=== PATIENT | female | born 1980 | race Caucasian/White ===

== ENCOUNTER 2018-11-22 20:40 | Emergency (ER) | payer MEDICAID ==
[~2018-11-22] VITALS: Ht 154.9 cm; Wt 49.6 kg
[2018-11-22 21:10] LABS: BASOPHILS % 0.5 % (0.0-2.0); EOSINOPHILS % 2.5 % (0.0-5.0); HEMATOCRIT. 36.7 % (36.0-48.0); HEMOGLOBIN. 12.3 g/dL (12.0-16.0); LYMPHOCYTES % 40.1 % (20.0-50.0); MEAN CORPUSCULAR HEMOGLOBIN 30.7 pg (28.0-32.0); MEAN CORPUSCULAR VOLUME 91.4 fL (81.0-99.0); MEAN PLATELET VOLUME 9.2 fl (7.4-10.4); MONOCYTES % 5.8 % (2.0-8.0); NEUTROPHILS % 51.1 % (40.0-76.0); PLATELET 189 x1000/uL (130-400); RED BLOOD CELL COUNT 4.02 mill/uL (4.2-5.4); RED CELL DISTRIBUTION WIDTH 12.8 % (11.6-14.6)
[2018-11-22 21:14] LABS: CHLORIDE 109 mEq/L (98-107)
[2018-11-22] MEDS ORDERED: IOHEXOL-350 100 ML BOTTLE ONE (21:14)
[2018-11-22 21:17] LABS: PARTIAL THROMBOPLASTIN TIME 30.5 sec (23.4-31.0); PROTHROMBIN TIME 10.5 sec (9.6-11.0)
[2018-11-22 21:18] LABS: ETHANOL BLOOD < 10 mg/dL
[2018-11-22 21:29] LABS: HCG SCREEN NEGATIVE
[2018-11-22] MEDS ORDERED: ASPIRIN 325MG EC TABLET PO ONE (22:15)
[2018-11-22 23:51] VITALS: BP 106/73
== END 2018-11-23 00:06 | disposition short-term general hospital (02) ==
LOC: ER 20:40
DX: I63.9 Cerebral infarction, unspecified (principal)
CPT/HCPCS: 36415; 70450; 70496; 70498; 71045; 80053; 80320; 84484; 84703; 85025; 85610; 85730; 93005; 99285; Q9967; G0480

== ENCOUNTER 2018-12-21 20:09 | Emergency (ER) | payer MEDICAID ==
[~2018-12-21] VITALS: Ht 154.9 cm; Wt 49.0 kg
[2018-12-21 22:14] LABS: BASOPHILS % 0.9 % (0.0-2.0); EOSINOPHILS % 7.5 % (0.0-5.0); HEMATOCRIT. 34.8 % (36.0-48.0); HEMOGLOBIN. 11.7 g/dL (12.0-16.0); LYMPHOCYTES % 37.1 % (20.0-50.0); MEAN CORPUSCULAR HEMOGLOBIN 30.7 pg (28.0-32.0); MEAN CORPUSCULAR VOLUME 91.1 fL (81.0-99.0); MEAN PLATELET VOLUME 9.5 fl (7.4-10.4); MONOCYTES % 6.9 % (2.0-8.0); NEUTROPHILS % 47.6 % (40.0-76.0); PLATELET 170 x1000/uL (130-400); RED BLOOD CELL COUNT 3.82 mill/uL (4.2-5.4); RED CELL DISTRIBUTION WIDTH 12.9 % (11.6-14.6)
[2018-12-21 22:16] LABS: CHLORIDE 110 mEq/L (98-107)
[2018-12-21 22:22] LABS: ETHANOL BLOOD < 10 mg/dL
[2018-12-21 22:23] LABS: D-DIMER 0.49 mg/L FEU (<0.50); PARTIAL THROMBOPLASTIN TIME 30.2 sec (23.4-31.0); PROTHROMBIN TIME 10.2 sec (9.6-11.0)
[2018-12-22] VITALS: BP 101/68
[2018-12-22 00:49] LABS: CLARITY URINE CLEAR (CLEAR); COLOR URINE YELLOW (YELLOW); KETONES URINE NEGATIVE (NEGATIVE); LEUKOCYTE ESTERASE URINE NEGATIVE (NEGATIVE); NITRITE URINE NEGATIVE (NEGATIVE); OCCULT BLOOD URINE 2+ (NEGATIVE); PROTEIN URINE NEGATIVE (NEGATIVE); SPECIFIC GRAVITY URINE 1.026 (1.005-1.030)
[2018-12-22 01:06] LABS: *AMPHETAMINES SCREEN URINE NEGATIVE (NEGATIVE); *BARBITURATES SCREEN URINE NEGATIVE (NEGATIVE); *BENZODIAZEPINES SCREEN URINE NEGATIVE (NEGATIVE); *COCAINE SCREEN URINE NEGATIVE (NEGATIVE)
[2018-12-22 01:07] LABS: CANNABINOID URINE SCREEN NEGATIVE (NEGATIVE); METHADONE URINE SCREEN NEGATIVE (NEGATIVE); OPIATES URINE SCREEN NEGATIVE (NEGATIVE); PHENCYCLIDINE URINE SCREEN NEGATIVE (NEGATIVE)
== END 2018-12-22 00:26 | disposition home or self-care (01) ==
LOC: ER 21:04
DX: R07.89 Other chest pain (principal); R11.0 Nausea; I11.9 Hypertensive heart disease without heart failure; Z86.73 Personal history of transient ischemic attack (TIA), and cerebral infarction without residual deficits
CPT/HCPCS: 36415; 71045; 80305; 80320; 81003; 83880; 84484; 85379; 93005; 99284; G0480

== ENCOUNTER 2022-01-15 18:58 | Emergency (ER) | payer MEDICAID ==
[~2022-01-15] VITALS: Ht 157.5 cm; Wt 75.0 kg
[2022-01-16] MEDS ORDERED: ONDANSETRON HCL 4MG/2ML INJ IV STA
[2022-01-16] MEDS ORDERED: SODIUM CHLORIDE 0.9% 1,000 ML IV ONE
[2022-01-16] MEDS ORDERED: MORPHINE SULFATE 4 MG/ML CPJ (NOT FOR IM USE) IV STA
[2022-01-16 00:25] LABS: BASOPHILS % 0.1 % (0.0-2.0); EOSINOPHILS % 1.3 % (0.0-5.0); HEMATOCRIT. 39.9 % (36.0-48.0); HEMOGLOBIN. 13.3 g/dL (12.0-16.0); LYMPHOCYTES % 16.7 % (20.0-50.0); MEAN CORPUSCULAR HEMOGLOBIN 29.9 pg (28.0-32.0); MEAN CORPUSCULAR VOLUME 89.5 fL (81.0-99.0); MEAN PLATELET VOLUME 9.2 fl (7.4-10.4); MONOCYTES % 6.4 % (2.0-8.0); NEUTROPHILS % 75.5 % (40.0-76.0); PLATELET 210 x1000/uL (130-400); RED BLOOD CELL COUNT 4.45 mill/uL (4.2-5.4); RED CELL DISTRIBUTION WIDTH 13.2 % (11.6-14.6)
[2022-01-16 00:27] LABS: CHLORIDE 105 mEq/L (98-107)
[2022-01-16 00:29] LABS: CLARITY URINE CLOUDY (CLEAR); COLOR URINE YELLOW (YELLOW); KETONES URINE 1+ (NEGATIVE); LEUKOCYTE ESTERASE URINE 1+ (NEGATIVE); NITRITE URINE POSITIVE (NEGATIVE); OCCULT BLOOD URINE 1+ (NEGATIVE); PROTEIN URINE 1+ (NEGATIVE); SPECIFIC GRAVITY URINE 1.027 (1.005-1.030)
[2022-01-16 00:34] LABS: HCG SCREEN NEGATIVE
[2022-01-16] MEDS ORDERED: POTASSIUM CHLORIDE 20MEQ TABLET SR PO NR (01:00)
[2022-01-16] MEDS ORDERED: CEFTRIAXONE 1 G PREMIX 50 ML IV NR (01:30)
[2022-01-16] MEDS ORDERED: IBUP-2028 MT (03:14)
[2022-01-16] MEDS ORDERED: ONDA4TAB50 MT (03:14)
[2022-01-16] MEDS ORDERED: CEPH500C2 MT (03:14)
[2022-01-16 04:06] VITALS: BP 108/70
== END 2022-01-16 06:00 | disposition home or self-care (01) ==
LOC: ER 18:58
DX: N12 Tubulo-interstitial nephritis, not specified as acute or chronic (principal); E87.6 Hypokalemia; I10 Essential (primary) hypertension; Z86.73 Personal history of transient ischemic attack (TIA), and cerebral infarction without residual deficits
CPT/HCPCS: 36415; 74176; 80053; 81003; 83605; 83690; 84484; 84703; 85025; 87086; 96361; 96365; 96375; 99284; J0696; J2270; J2405; J7030